=== PATIENT | female | born 1940 | race Caucasian/White ===

== ENCOUNTER 2017-03-17 17:45 | Emergency (ER) | payer OTHER, BC ==
[2017-03-17 17:50] VITALS: TEMP 99.4; BMI 22.6
[2017-03-17 18:48] LABS: ALBUMIN 4.1 g/dl (3.5-5.0); ALK PHOS 45 U/L (32-92); ANION GAP 3 (8-16); BILIRUBIN,TOTAL 0.7 mg/dl (0.2-1.0); CALCIUM 9.2 mg/dl (8.4-10.2); CO2 25 mmol/L (22-28); CREATININE 0.7 mg/dl (0.6-1.3); GLUCOSE,RANDOM 85 mg/dl (74-106); SGOT/AST 25 U/L (10-42); SGPT/ALT 26 U/L (10-40); TOT PROT 6.5 g/dl (6.4-8.3)
--- NOTE | 2017-03-17 18:48 | PDOC ---
History of Present Illness - History of Present Illness Initial Comments: 03/17/17 19:20 Patient is a 76 year old female with a PMH of myasthenia gravis and has a risk factor for heart disease who presents to the emergency room complaining of lightheadedness and dizziness since a couple of hours ago. Patient states she was headed to dinner with family and she was arguing with her spouse when she began feeling dizzy and felt heaviness in her right arm and leg. She took her BP and noticed it was unusually high (207). Patients daughter stated patient had a hard time walking. Patient states she was having a hard time signing her name. Patient states associated symptoms of heart palpitations. Patient states her blood pressure is normally 120-130/60 after taking her Losartan and otherwise is normally 147-152/70 without it. Patient states she is sensitive to drug interactions. Patient states she normally exercises and eats a vegetarian diet. Denies chest pain, shortness of breath, headache. Hypertension specialist: [phone] PCP: Gunnar Cash M.D. <Eri Johnson - Last Filed: 03/17/17 21:01> <Josefa Fuentes - Last Filed: 03/20/17 09:54> - General Chief Complaint: Lightheaded Stated Complaint: DIZZINESS Time Seen by Provider: 03/17/17 18:40 NIH Stroke Scale - Last Known Well Date/Time & Onset Date Last Known Well: 03/17/17 Time Last Known Well: 17:55 - Initial Evaluation Level of consciousness: Alert Ask patient the month and their age: Answers both correctly Ask patient to open & close eyes; make fist and let go: Obeys both correctly Best gaze (horizontal eye movement): Normal Visual field testing: No visual field loss Facial paresis (Show teeth/raise eyebrows/close eyes tight): Normal symmetrical movement Motor Function: Left Arm: Normal Motor Function: Right Arm: Normal (extends arm 90 (or 45) degrees for 10 seconds without drift Motor Function: Left Leg: Normal (extends leg 30 degrees for 5 seconds without drift) Motor Function: Right Leg: Normal (extends leg 30 degrees for 5 seconds without drift) Limb Ataxia: No ataxia Sensory(Use pinprick test arms,legs,trunk,face/side to side): Normal Best language (Describe picture, name items, read sentences): No Aphasia Dysarthria (read several words): Normal articulation Extinction and Inattention: No abnormality - Total Score NIH Stroke Scale Score: 0 <Josefa Fuentes - Last Filed: 03/20/17 09:54> tPA Exclusion Checklist 0-3hr - Time Elapsed Date last known well: 03/17/17 Time last known well: 17:35 Elaspsed time: 2 Day(s) and 16 Hour(s) and 15 Minutes - Thrombolytic Therapy Candidate Is the patient eligible for Thrombolytic Therapy?: No - Exclusion Criteria 0-3hr SBP greater than 185 or DBP greater than 110mmHg despite tx: Yes Recent IC/spinal surgery,head trauma or stroke w/in last 3mo: No Hx of previous IC hemorrhage, IC neoplasm, AVM or aneurysm: No Active internal bleeding: No Blding diathesis(low plt ct, inc PTT,INR>1.7 or use of NOAC): No Symptoms suggest subarachnoid hemorrhage: No CT demonstrates multilobar infarct(>1/3 cerebral hemiphere): No Arterial puncture at noncompressible site in previous 7 days: No Blood glucose concentration less than 50mg/dL (2.7mmol/L): No - Relative Exclusion Criteria 0-3h Life expectancy <1yr/severe co-morbid illness/MEASUREMENT ANALYST on admit: No : No Patient/family refused: No Rapid improvement: Yes Stroke severity too mild: Yes Recent acute NV (w/in previous 3 months): No Seizure at onset with postictal residual neuro impairments: No Major surgery or serious trauma w/in previous 14 days: No Recent GI or hemorrhage (w/in previous 21 days): No - Ineligibility reason(s) Reasons No tPA given: See reason(s) noted above <Josefa Fuentes - Last Filed: 03/20/17 09:54> Past History <Eri Johnson - Last Filed: 03/17/17 21:01> - Past Medical History Disorders: Yes (PROLAPSED UTERUS) HTN: Yes Other medical history: MYESTINAGRAVIS - Suicide/Smoking/Psychosocial Hx Smoking Status: No Smoking History: Never smoked Number of Cigarettes Smoked Daily: 0 Information on smoking cessation initiated: No Hx Alcohol Use: No Drug/Substance Use Hx: No Substance Use Type: None <Josefa Fuentes - Last Filed: 03/20/17 09:54> - Past Medical History Allergies/Adverse Reactions: Allergies Allergy/AdvReac Type Severity Reaction Status Date / Time levofloxacin [From Levaquin] Allergy Severe Nausea Verified 03/17/17 17:46 Penicillins Allergy Severe Rash Verified 03/17/17 17:46 NOVICAIN Allergy Severe Nausea Uncoded 03/17/17 17:46 Home Medications: Ambulatory Orders Losartan Potassium 50 mg PO BID 03/11/13 Pyridostigmine [Mestinon -] 60 mg PO ASDIR 03/11/13 Review of Systems - Review of Systems Comments:: 03/17/17 19:21 GENERAL/CONSTITUTIONAL: No: fever, chills, weakness, loss of appetite. HEAD, EYES, EARS, NOSE AND THROAT: No: change in vision, ear pain, discharge, sore throat, throat swelling. CARDIOVASCULAR: +lightheadedness +palpitations No: chest pain,syncope RESPIRATORY: No: cough, shortness of breath, wheezing, hemoptysis, stridor. GASTROINTESTINAL: No: nausea, vomiting, abdominal cramping, diarrhea, rectal bleeding, constipation. GENITOURINARY: No: dysuria, hematuria, frequency, urgency, flank pain. MUSCULOSKELETAL: No: back pain, neck pain, joint pain, muscle swelling or pain SKIN AND BREASTS: No: lesions, pallor, rash or easy bruising. NEUROLOGIC: No: headache, vertigo, paresthesias, weakness ENDOCRINE: No: unexplained weight gain or loss HEMATOLOGIC/LYMPHATIC: No: anemia, easy bleeding, swelling nodes <Eri Johnson - Last Filed: 03/17/17 21:01> *Physical Exam - Vital Signs Last Vital Signs Temp Pulse Resp BP Pulse Ox 99.4 F 80 18 189/73 98 03/17/17 17:48 03/17/17 18:55 03/17/17 17:48 03/17/17 18:55 03/17/17 17:48 - Physical Exam Comments: 03/17/17 19:22 GENERAL: The patient is in no acute distress. HEAD: Normal with no signs of trauma. EYES: PERRLA, EOMI, sclera anicteric, conjunctiva clear. ENT: Ears normal, nares patent, oropharynx clear without exudates. Moist mucous membranes. NECK: Normal range of motion, supple without lymphadenopathy, JVD, or masses. LUNGS: Breath sounds equal, clear to auscultation bilaterally. No wheezes, and no crackles. HEART:Regular rate and rhythm, normal S1 and S2 without murmur, rub or gallop. ABDOMEN: Soft, nontender, normoactive bowel sounds. No guarding, no rebound. EXTREMITIES: Normal range of motion, no edema. No clubbing or cyanosis. No erythema, or tenderness. NEUROLOGICAL: See NIHSS. Cranial nerves II through XII grossly intact. Normal speech. No focal neurological deficits. MUSCULOSKELETAL: Back non-tender to palpation, no CVA tenderness SKIN: Warm, Dry, normal turgor, no rashes or lesions noted. <Eri Johnson - Last Filed: 03/17/17 21:01> - Vital Signs Last Vital Signs Temp Pulse Resp BP Pulse Ox 99.4 F 69 18 183/81 98 03/17/17 17:48 03/17/17 18:25 03/17/17 17:48 03/17/17 18:25 03/17/17 17:48 <Josefa Fuentes - Last Filed: 03/20/17 09:54> ED Treatment Course - LABORATORY CBC & Chemistry Diagram: 03/17/17 18:13 03/17/17 18:13 - ADDITIONAL ORDERS Additional order review: Laboratory Results 03/17/17 03/17/17 18:13 18:13 Sodium 135 L Potassium 3.7 Chloride 107 Carbon Dioxide 25 Anion Gap 3 L BUN 19 H Creatinine 0.7 Creat Clearance w eGFR > 60 Random Glucose 85 Calcium 9.2 Total Bilirubin 0.7 D AST 25 D ALT 26 Alkaline Phosphatase 45 Troponin I < 0.03 L Total Protein 6.5 Albumin 4.1 03/17/17 18:13 RBC 4.31 MCV 83.8 MCHC 35.2 RDW 13.0 MPV 7.8 Neutrophils % 48.6 Lymphocytes % 39.5 Monocytes % 7.0 Eosinophils % 3.4 Basophils % 1.5 <Eri Johnson - Last Filed: 03/17/17 21:01> - LABORATORY CBC & Chemistry Diagram: 03/17/17 18:13 03/17/17 18:13 <Josefa Fuentes - Last Filed: 03/20/17 09:54> Medical Decision Making - Critical Care Time Total Critical Care Time (minutes): 120 Critical Care Statement: The care of this patient involved high complexity decision making to prevent further life threatening deterioration of the patient 's condition and/or to evaluate & treat vital organ system(s) failure or risk of failure. - Medical Decision Making 03/17/17 18:56 This is a 76 yo F with a history of Myasthenia Gravis and HTN (om Losartan 50mg BID) She presents to the ER with her family due to High Blood pressure and right arm heaviness No headache No chest pain No shortness of breath No palpitations Pt vertigo No dizziness Pt came to the ER today because she noted right arm and leg heaviness She is ambulatory with steady gait in to the ER NIHSS 0 Pt presentation consistent with: TIA vs, CVA vs. Hypertensive Urgency vs. Myasthenia Crisis?? Will do continuous monitoring of her BP Will monitor for signs of ACS Leg and arm heaviness are concerning findings in this patient with elevated BP She at this time has refused CT, MRI, Any other medications, CXR, admission 03/17/17 19:45 Call placed to pt Neurologist/MS specialist Dr De Anda per pt request ( instead of the above actions) Pt requests that we monitor her until BP improved Attempted to get patient to the bathroom She requires a lot of assistance due to right leg heaviness I have reviewed this again with this patient She requires neurologic work up Pt sent for CT head 03/17/17 19:[address] read as negative Call placed to patient's neurologist He will call back Pt appears to be progressively worsening while in the ER She is still able to hold right arm up against gravity for 10 seconds and right leg up against gravity for 5 seconds with no drift or difficulty She has difficulty signing her name, for example 03/17/17 20:[address] Lino Recommends that pt bp be aggressively managed Would NOT give TPA as NIHSS is low Laboratory Tests 03/17/17 03/17/17 03/17/17 18:13 18:13 18:13 WBC 5.6 Hgb 12.7 Hct 36.1 Plt Count 295 Sodium 135 L Potassium 3.7 Chloride 107 Carbon Dioxide 25 BUN 19 H Creatinine 0.7 Random Glucose 85 Alkaline Phosphatase 45 Troponin I < 0.03 L 03/17/17 20:[address] De Anda, no response Call again placed to Dr Lino Requesting he come in to see this patient States this can be managed over the phone Pt NIHSS has not changed, it is still 0 Pt fine motor skills seem to be what is affected, Pt agreed to take an Aspirin but drops the pill She is assisted to standing and can walk but requires assistance to NOT fall over MRI offered to this patient She is refusing at this time Pt feels that this is possibly her myasthenia When told that I do not believe that because it is limited to her right side, pt believes that this is due to her using excessively her right side while putting up her Succoth She also likens this to a prior episode when her blood pressure became very elevated Care of patient taken over by Dr De La Torre She will contact Dr Lino and continuously monitor for neurologic changes 03/20/17 09:50 <Josefa Fuentes - Last Filed: 03/20/17 09:54> *DC/Admit/Observation/Transfer - Attestations Scribe Attestion: 03/17/17 19:22 Documentation prepared by Eri Johnson, acting as clinical specialist medical device for Josefa Fuentes MD. <Eri Johnson - Last Filed: 03/17/17 21:01> <Josefa Fuentes - Last Filed: 03/20/17 09:54> Diagnosis at time of Disposition: Hypertension - Discharge Dispostion Disposition: HOME Condition at time of disposition: Stable - Referrals Referrals: Gunnar Cash MD [Primary Care Provider] - Vipul Valles MD [Staff Physician] - 3 days - Patient Instructions Printed Discharge Instructions: High Blood Pressure Additional Instructions: Continue medications as previously prescribed Return to ER immediately if any severe symptoms recur Follow-up with Dr. Estrella regarding blood pressure control Follow-up with neurologist () within the next 3 days
[2017-03-17 18:52] LABS: PLATELET COUNT 295 K/MM3 (134-434)
[2017-03-17 18:58] LABS: BASOPHIL 1.5 % (0-2.0); EOSINOPHIL 3.4 % (0-4.5); MCH 29.5 pg (25.7-33.7); MCHC 35.2 g/dl (32.0-36.0); MEAN CELL VOLUME 83.8 fl (80-96); MEAN PLT VOLUME 7.8 fl (7.5-11.1); NEUTROPHILS 48.6 % (42.8-82.8); WHITE BLOOD COUNT 5.6 K/mm3 (4.0-10.8)
[2017-03-17] MEDS ORDERED: LOSARTAN POTASSIUM 50 MG TABLET (FP) PO ONE (19:15)
--- NOTE | 2017-03-17 19:53 | PDOC ---
*Physical Exam - Vital Signs Last Vital Signs Temp Pulse Resp BP Pulse Ox 99.4 F 80 18 189/73 98 03/17/17 17:48 03/17/17 18:55 03/17/17 17:48 03/17/17 18:55 03/17/17 17:48 ED Treatment Course - LABORATORY CBC & Chemistry Diagram: 03/17/17 18:13 03/17/17 18:13 - ADDITIONAL ORDERS Additional order review: Laboratory Results 03/17/17 03/17/17 18:13 18:13 Sodium 135 L Potassium 3.7 Chloride 107 Carbon Dioxide 25 Anion Gap 3 L BUN 19 H Creatinine 0.7 Creat Clearance w eGFR > 60 Random Glucose 85 Calcium 9.2 Total Bilirubin 0.7 D AST 25 D ALT 26 Alkaline Phosphatase 45 Troponin I < 0.03 L Total Protein 6.5 Albumin 4.1 03/17/17 18:13 RBC 4.31 MCV 83.8 MCHC 35.2 RDW 13.0 MPV 7.8 Neutrophils % 48.6 Lymphocytes % 39.5 Monocytes % 7.0 Eosinophils % 3.4 Basophils % 1.5 Progress Note - Progress Note Progress Note: Care of this patient received from Dr. Fuentes Patient had presented with right upper extremity and right lower extremity "heaviness" with subsequent difficulty ambulating. This had occurred after she had a discussion with her which had irritated her. Patient states that she is very sensitive to arguments with her and can sometimes note in elevation in her blood pressure. On presentation, her blood pressure was significantly elevated as noted above. Noncontrast head CT showed no evidence of bleed or other acute intracranial pathology. Because the patient has extreme sensitivity to medications, she preferred to take her own Losartan. As family members retrieved her own supply of losartan, the patient continued to have symptoms as described above. Gait testing revealed that she had significant difficulty in ambulating. Also, there appeared to be fine motor deficits in her right arm (dropped small items placed in her hand). The patient's neurologist is Dr. Vamsi Collier. His service was contacted twice without him or his coverage physician returning page. Neurology on-call, Dr. Valles was contacted. Although history and physical was particularly consistent with acute stroke, approval for emergency MRI was obtained. Unfortunately, patient is claustrophobic and cannot take benzodiazepines because of her myasthenia gravis. Therefore, she refused MRI. Meanwhile, after taking her own losartan, patient's blood pressure gradually decreased.(155/82 range) At the same time, her symptoms of right upper and lower extremity heaviness and discoordination improved. Patient felt well enough to go home and Gait testing revealed the patient ambulate normally without assistance. Dr. Valles contacted and progress discussed with him. It is his opinion that hit patient's symptoms were likely related to her hypertensive urgency and not reflective of stroke or TIA. Because of the marked improvement in her symptoms and blood pressure control, she can be discharged with follow up with him within the next 48 hours. This was discussed with the patient and her family. Patient states that she would like to follow-up with because she would prefer to have a neurologist in the area (Dr. Collier practices in [facility]). Meanwhile, the patient should continue her medications as prescribed. She should contact her hypertension physician, and relate today's incident and follow-up as planned. She should return to the emergency room immediately if she has recurrence of her symptoms or any new extremity weakness/ facial droop/difficulty in speaking or swallowing. *DC/Admit/Observation/Transfer Diagnosis at time of Disposition: Hypertension - Discharge Dispostion Disposition: HOME Condition at time of disposition: Stable - Referrals Referrals: Gunnar Cash MD [Primary Care Provider] - Vipul Valles MD [Staff Physician] - 3 days - Patient Instructions Printed Discharge Instructions: High Blood Pressure Additional Instructions: Continue medications as previously prescribed Return to ER immediately if any severe symptoms recur Follow-up with Dr. Estrella regarding blood pressure control Follow-up with neurologist () within the next 3 days - Post Discharge Activity
[2017-03-17 20:52] VITALS: BP 175/82; PULSE 71
--- NOTE | 2017-03-18 09:36 | EKG ---
Test Reason : Blood Pressure : / mmHG Vent. Rate : 069 BPM Atrial Rate : 069 BPM P-R Int : 182 ms QRS Dur : 132 ms QT Int : 456 ms P-R-T Axes : 067 -48 069 degrees QTc Int : 488 ms NORMAL SINUS RHYTHM RIGHT BUNDLE BRANCH BLOCK LEFT ANTERIOR FASCICULAR BLOCK BIFASCICULAR BLOCK MINIMAL VOLTAGE CRITERIA FOR LVH, MAY BE NORMAL VARIANT NONSPECIFIC T WAVE ABNORMALITY ABNORMAL ECG NO PREVIOUS ECGS AVAILABLE Confirmed by ESTEBAN KERN MD ([id number]) on 03/18/2017 9:35:44 AM Referred By: MD CEDEÑO Confirmed By:ESTEBAN KERN MD
== END 2017-03-17 23:26 | disposition home or self-care (01) ==
LOC: FER 17:45
DX: I10 Essential (primary) hypertension (principal); G70.00 Myasthenia gravis without (acute) exacerbation
CPT/HCPCS: 36415; 70450-TC; 80053; 84484; 85025; 93005; 99284-25

== ENCOUNTER 2022-04-06 12:27 | Observation (INO) | payer OTHER, BC ==
[2022-04-06] MEDS ORDERED: SODIUM CHLORIDE 0.9% 500 ML INFUS.BAG IV ONE (12:53)
[2022-04-06 13:42] LABS: HEMATOCRIT 41.9 % (32.4-45.2); HEMOGLOBIN 14.4 G/dL (10.7-15.3); MCH 29.5 pg (25.7-33.7); MCHC 34.4 g/dl (32.0-36.0); MEAN CELL VOLUME 85.8 fl (80-96); MEAN PLT VOLUME 7.6 fl (7.5-11.1); PLATELET COUNT 324.2 10^3/uL (134-434); RBC 4.88 10^6/uL (3.60-5.2); RDW 15.3 % (11.6-15.6); WHITE BLOOD COUNT 11.8 10^3/uL (4.0-10.8)
[2022-04-06 13:55] LABS: BILIRUBIN,TOTAL 0.8 mg/dl (0.2-1); CREATININE 0.8 mg/dl (0.55-1.3); TOT PROT 7.1 g/dl (6.4-8.2)
[2022-04-06] MEDS ORDERED: ACETAMINOPHEN 325 MG TABLET (FP) PO ONE (14:35)
[2022-04-06] MEDS ORDERED: ACETAMINOPHEN 325 MG TABLET (FP) ONE (14:37)
[2022-04-06] MEDS ORDERED: CEFTRIAXONE 1 GM in DEXTROSE 5%-WATER - 50 ML IVPB ONE (16:51)
[2022-04-06] MEDS ORDERED: oxyCODONE HCL 5 MG TABLET PO ONE (16:51)
[2022-04-06] MEDS ORDERED: cefTRIAXone SODIUM 1 GM VIAL ONE (16:54)
[2022-04-06] MEDS ORDERED: oxyCODONE HCL 5 MG TABLET ONE (16:54)
[2022-04-06 22:02] VITALS: BMI 21.6
[2022-04-07] MEDS: ACETAMINOPHEN 325 MG TABLET (FP) PO PRN ×3 (00:34→19:41)
[2022-04-07] MEDS ORDERED: FAMOTIDINE 20 MG TABLET PO ONE (03:40)
[2022-04-07 09:08] LABS: CALCIUM 8.7 mg/dl (8.5-10); CREATININE 0.7 mg/dl (0.55-1.3); MAGNESIUM 1.9 mg/dL (1.8-2.4)
[2022-04-07] MEDS: amLODIPine BESYLATE 2.5 MG TABLET (FP) PO SCH (09:30)
[2022-04-07] MEDS ORDERED: CEFTRIAXONE 1 GM in DEXTROSE 5%-WATER - 50 ML IVPB SCH ×2 (10:00→16:00)
[2022-04-07 11:07] LABS: HEMATOCRIT 38.3 % (32.4-45.2); HEMOGLOBIN 12.3 GM/dL (10.7-15.3); MCH 27.8 pg (25.7-33.7); MCHC 32.1 g/dl (32.0-36.0); MEAN CELL VOLUME 86.6 fl (80-96); PLATELET COUNT 320 10^3/uL (134-434); RBC 4.42 M/mm3 (3.60-5.2); RDW 14.1 % (11.6-15.6); WHITE BLOOD COUNT 9.1 K/mm3 (4.0-10.0)
[2022-04-07 16:04] LABS: EPITHELIAL CELLS FEW /hpf
[2022-04-08] MEDS: ACETAMINOPHEN 325 MG TABLET (FP) PO PRN (05:00)
[2022-04-08] MEDS: amLODIPine BESYLATE 2.5 MG TABLET (FP) PO SCH (10:02)
[2022-04-08 13:34] VITALS: BP 142/66; PULSE 81; RESP 18; TEMP 98.1
== END 2022-04-08 13:35 | disposition home or self-care (01) ==
LOC: FER 12:27 → FM/S 20:23
PROVIDERS: ADMIT Internal Medicine; ATTEND Internal Medicine
PROC: 3E03329 Introduction of Other Anti-infective into Peripheral Vein, Percutaneous Approach (ICD-10-PCS; principal; 2022-04-06)
PROC: 3E0337Z Introduction of Electrolytic and Water Balance Substance into Peripheral Vein, Percutaneous Approach (ICD-10-PCS; 2022-04-06)
DX: N39.0 Urinary tract infection, site not specified (principal); S49.90XA Unspecified injury of shoulder and upper arm, unspecified arm, initial encounter; W18.39XA Other fall on same level, initial encounter; Y93.89 Activity, other specified; Y92.098 Other place in other non-institutional residence as the place of occurrence of the external cause; Z88.8 Allergy status to other drugs, medicaments and biological substances; Z88.0 Allergy status to penicillin; R58 Hemorrhage, not elsewhere classified; R42 Dizziness and giddiness; R63.0 Anorexia
CPT/HCPCS: 0241U-QW; 36415; 70450-TC; 71045-TC-FY; 72125-TC; 73030-TC-LT-FY; 73060-TC-LT-FY; 80048; 80053; 81003; 81015; 83735; 85027; 87040; 87086; 87186; 93005; 96365; 96366; 97116-GP; 97162-GP; 99285-25; G0378

== ENCOUNTER 2024-02-12 13:30 | Inpatient (IN) | payer OTHER, BC ==
[2024-02-12 13:39] VITALS: BMI 20.1
[2024-02-12] MEDS: SODIUM CHLORIDE 0.9% 1000 ML INFUS.BAG IV ONE (14:00)
[2024-02-12] MEDS ORDERED: dilTIAZem HCL 125 MG/25 ML - 25 ML VIAL ONE (14:05)
[2024-02-12] MEDS: dilTIAZem HCL 50 MG/10 ML - 10 ML VIAL IVPUSH ONE (14:10)
[2024-02-12 14:41] LABS: INR 0.96 (0.83-1.09)
[2024-02-12 14:51] LABS: HEMOGLOBIN 14.5 G/dL (10.7-15.3); MCH 27.9 pg (25.7-33.7); MCHC 32.3 g/dl (32.0-36.0); MEAN CELL VOLUME 86.3 fl (80-96); MEAN PLT VOLUME 8.8 fl (7.5-11.1); PLATELET COUNT 226.9 10^3/uL (134-434); RBC 5.21 10^6/uL (3.60-5.2); RDW 15.1 % (11.6-15.6); WHITE BLOOD COUNT 8.1 10^3/uL (4.0-10.8)
[2024-02-12 14:54] LABS: ALBUMIN 4.2 g/dl (3.4-5.0); BILIRUBIN,TOTAL 0.7 mg/dl (0.2-1); CALCIUM 9.6 mg/dl (8.5-10.1); CREATININE 1.1 mg/dl (0.6-1.3); MAGNESIUM 1.9 mg/dL (1.8-2.4); POTASSIUM 3.9 mmol/L (3.5-5.1); TOT PROT 6.6 g/dl (6.4-8.2)
[2024-02-12] MEDS ORDERED: cefTRIAXone SODIUM 1 GM VIAL ONE (14:56)
[2024-02-12] MEDS ORDERED: dilTIAZem HCL 30 MG TABLET ONE (14:56)
[2024-02-12] MEDS: CEFTRIAXONE 1 GM in DEXTROSE 5%-WATER - 100 ML IVPB ONE (15:01)
[2024-02-12] MEDS: dilTIAZem HCL 30 MG TABLET PO ONE (15:01)
[2024-02-12 15:06] LABS: PLATELET ESTIMATE ADEQUATE
[2024-02-12 15:10] LABS: EPITHELIAL CELLS 0-5 /hpf
[2024-02-12 16:59] LABS: VENOUS BASE EXCESS -2.4 mmol/L (-2-2); VENOUS O2 SATURATION 91.2 % (70-80); VENOUS PCO2 33.3 mmHg (38-52); VENOUS PH 7.42 (7.310-7.410)
[2024-02-12] MEDS ORDERED: METOPROLOL TARTRATE 25 MG TABLET (FP) PO SCH (18:37)
[2024-02-12] MEDS ORDERED: ENOXAPARIN NA (PORCINE) 60 MG/0.6 ML DISP.SYRIN SQ SCH (18:45)
[2024-02-12 21:13] VITALS: BP 124/64; PULSE 79; RESP 18; TEMP 98.9
[2024-02-12] MEDS ORDERED: ROSUVASTATIN CA 20 MG TABLET PO SCH (22:00)
[2024-02-12] MEDS ORDERED: GABAPENTIN 300 MG CAPSULE PO SCH (22:00)
== END 2024-02-12 20:45 | disposition short-term general hospital (02) | DRG 309 ==
LOC: FER 13:30 → JERBED 18:15 → UNDOADMIN 18:15 → JICU 18:15
PROVIDERS: ADMIT Internal Medicine; ATTEND Internal Medicine
DX: I48.91 Unspecified atrial fibrillation (principal); N39.0 Urinary tract infection, site not specified; I10 Essential (primary) hypertension; E78.5 Hyperlipidemia, unspecified; G62.9 Polyneuropathy, unspecified; G70.00 Myasthenia gravis without (acute) exacerbation; I45.10 Unspecified right bundle-branch block; R94.31 Abnormal electrocardiogram [ECG] [EKG]; R63.0 Anorexia; Z88.0 Allergy status to penicillin; R53.1 Weakness
CPT/HCPCS: 0241U-QW; 36415; 70450-TC; 71045-TC-FY; 72125-TC; 72170-TC-FY; 80053; 81003; 81015; 82803; 83605; 83735; 84443; 84484; 85025; 85027; 85610; 85651; 85730; 86140; 87086; 87186; 93005; 99291

== ENCOUNTER 2024-02-23 17:17 | Inpatient (IN) | payer OTHER, BC ==
[2024-02-23 18:26] LABS: HEMATOCRIT 40.6 % (32.4-45.2); HEMOGLOBIN 13.3 G/dL (10.7-15.3); MCH 28.8 pg (25.7-33.7); MCHC 32.9 g/dl (32.0-36.0); MEAN CELL VOLUME 87.6 fl (80-96); MEAN PLT VOLUME 7.1 fl (7.5-11.1); PLATELET COUNT 497.2 10^3/uL (134-434); RBC 4.63 10^6/uL (3.60-5.2); RDW 15.6 % (11.6-15.6); WHITE BLOOD COUNT 10.1 10^3/uL (4.0-10.8)
[2024-02-23 18:38] LABS: ALBUMIN 3.9 g/dl (3.4-5.0); BILIRUBIN,TOTAL 0.4 mg/dl (0.2-1); CALCIUM 9.6 mg/dl (8.5-10.1); CREATININE 0.8 mg/dl (0.6-1.3); POTASSIUM 4.1 mmol/L (3.5-5.1); TOT PROT 6.8 g/dl (6.4-8.2)
[2024-02-23 18:52] LABS: PLATELET ESTIMATE SLT INCREASE
[2024-02-23] MEDS ORDERED: methylPREDNISolone NA SUCC 125 MG/2 ML VIAL ONE (19:45)
[2024-02-23] MEDS ORDERED: valACYclovir HCL 500 MG TABLET (FP) ONE (19:45)
[2024-02-23] MEDS: valACYclovir HCL 500 MG TABLET (FP) PO ONE (19:52)
[2024-02-23] MEDS: methylPREDNISolone NA SUCC 125 MG/2 ML VIAL IVPUSH ONE (19:52)
[2024-02-23 22:10] VITALS: BMI 21.0
[2024-02-23] MEDS: ROSUVASTATIN CA 20 MG TABLET PO SCH (22:30)
[2024-02-23] MEDS: GABAPENTIN 300 MG CAPSULE PO SCH (22:30)
[2024-02-24] MEDS ORDERED: valACYclovir HCL 500 MG TABLET (FP) PO SCH (04:00)
[2024-02-24 08:24] LABS: CREATININE 0.7 mg/dl (0.6-1.3); POTASSIUM 3.9 mmol/L (3.5-5.1)
[2024-02-24 09:43] LABS: BASO % 0.2 % (0-2.0); HEMATOCRIT 38.4 % (32.4-45.2); HEMOGLOBIN 13.2 GM/dL (10.7-15.3); LYMPH % 13.7 % (8-40); MCH 28.9 pg (25.7-33.7); MCHC 34.3 g/dl (32.0-36.0); MEAN CELL VOLUME 84.3 fl (80-96); MEAN PLT VOLUME 7.4 fl (7.5-11.1); NEUT % 85.1 % (42.8-82.8); PLATELET COUNT 539 10^3/uL (134-434); RBC 4.55 M/mm3 (3.60-5.2); RDW 14.2 % (11.6-15.6); WHITE BLOOD COUNT 10.1 K/mm3 (4.0-10.0)
[2024-02-24] MEDS: predniSONE 20 MG TABLET (UD) PO SCH (09:59)
[2024-02-24] MEDS: valACYclovir HCL 500 MG TABLET (FP) PO SCH (10:00)
[2024-02-24] MEDS: CEFTRIAXONE 1 GM in DEXTROSE 5%-WATER - 50 ML IVPB SCH (13:38)
[2024-02-24] MEDS: POLYETHYLENE GLYCOL (HEALTHYLAX) 3350 17 GM PACKET PO SCH (15:41)
[2024-02-25 08:28] LABS: ALBUMIN 3.6 g/dl (3.4-5.0); BILIRUBIN,TOTAL 0.4 mg/dl (0.2-1); CALCIUM 9.8 mg/dl (8.5-10.1); CREATININE 0.8 mg/dl (0.6-1.3); POTASSIUM 4.4 mmol/L (3.5-5.1); TOT PROT 6.2 g/dl (6.4-8.2)
[2024-02-25] MEDS: ARTIFICIAL TEARS OPHTHALMIC DROPS OU PRN (08:30)
[2024-02-25 10:21] LABS: HEMATOCRIT 36.1 % (32.4-45.2); HEMOGLOBIN 12.1 GM/dL (10.7-15.3); MCH 28.5 pg (25.7-33.7); MCHC 33.5 g/dl (32.0-36.0); MEAN CELL VOLUME 85.1 fl (80-96); MEAN PLT VOLUME 7.7 fl (7.5-11.1); PLATELET COUNT 517 10^3/uL (134-434); RBC 4.24 M/mm3 (3.60-5.2); RDW 14.7 % (11.6-15.6); WHITE BLOOD COUNT 24.1 K/mm3 (4.0-10.0)
[2024-02-25 10:45] LABS: ANISOCYTOSIS 0; MACROCYTOSIS 0
[2024-02-25] MEDS: DOCUSATE SODIUM 100 MG CAPSULE (FP) PO SCH (15:15)
[2024-02-26] MEDS ORDERED: cefTRIAXone SODIUM 1 GM VIAL ONE (09:28)
[2024-02-27 09:36] LABS: ALBUMIN 3.5 g/dl (3.4-5.0); BILIRUBIN,TOTAL 0.5 mg/dl (0.2-1); CALCIUM 9.2 mg/dl (8.5-10.1); CREATININE 0.6 mg/dl (0.6-1.3); POTASSIUM 4.1 mmol/L (3.5-5.1)
[2024-02-27] MEDS: ACETAMINOPHEN 325 MG TABLET (FP) PO PRN (11:07)
[2024-02-27 13:03] LABS: HEMATOCRIT 37.7 % (32.4-45.2); HEMOGLOBIN 12.3 GM/dL (10.7-15.3); MCHC 32.7 g/dl (32.0-36.0); MEAN CELL VOLUME 85.6 fl (80-96); MEAN PLT VOLUME 8.1 fl (7.5-11.1); PLATELET COUNT 499 10^3/uL (134-434); RBC 4.41 M/mm3 (3.60-5.2); RDW 15.3 % (11.6-15.6); WHITE BLOOD COUNT 15.7 K/mm3 (4.0-10.0)
[2024-02-27 13:43] LABS: ANISOCYTOSIS 0; HELMET CELLS 0; HOWELL-JOLLY BODIES 0; MACROCYTOSIS 0; OVALOCYTE 0; ROULEAU 0; SICKELED CELLS 0; TARGET CELLS 0; TEAR DROP CELLS 0; TOXIC GRANULATION 0
[2024-02-28] MEDS ORDERED: valACYclovir HCL 500 MG TABLET (FP) ONE (21:16)
[2024-02-29 08:43] LABS: ALBUMIN 3.5 g/dl (3.4-5.0); BILIRUBIN,TOTAL 0.6 mg/dl (0.2-1); CALCIUM 9.3 mg/dl (8.5-10.1); CREATININE 0.6 mg/dl (0.6-1.3); TOT PROT 5.9 g/dl (6.4-8.2)
[2024-02-29 08:47] LABS: HEMATOCRIT 38.5 % (32.4-45.2); HEMOGLOBIN 12.8 GM/dL (10.7-15.3); MCH 28.4 pg (25.7-33.7); MCHC 33.3 g/dl (32.0-36.0); MEAN CELL VOLUME 85.4 fl (80-96); MEAN PLT VOLUME 7.6 fl (7.5-11.1); MONO % 2.8 % (3.8-10.2); NEUT % 82.2 % (42.8-82.8); PLATELET COUNT 448 10^3/uL (134-434); RBC 4.51 M/mm3 (3.60-5.2); RDW 14.5 % (11.6-15.6)
[2024-02-29 09:49] VITALS: BP 149/81; PULSE 102; RESP 18; TEMP 98
[2024-02-29] MEDS: predniSONE 20 MG TABLET (UD) PO SCH (09:57)
[2024-02-29] MEDS: PANTOPRAZOLE 40 MG TABLET PO SCH (09:58)
[2024-02-29] MEDS: BISACODYL 10 MG SUPP.RECT PR ONE (12:39)
== END 2024-02-29 14:45 | disposition home or self-care (01) | DRG 866 ==
LOC: FER 17:17 → FM/S 19:00 → OBSVTOIN 02-24 14:56
PROVIDERS: ADMIT Internal Medicine; ATTEND Internal Medicine
DX: B02.8 Zoster with other complications (principal); L03.211 Cellulitis of face; G70.00 Myasthenia gravis without (acute) exacerbation; I10 Essential (primary) hypertension; E78.5 Hyperlipidemia, unspecified; G62.9 Polyneuropathy, unspecified; G51.0 Bell's palsy; I48.91 Unspecified atrial fibrillation
CPT/HCPCS: 36415; 70450-TC; 80048; 80053; 80061; 83036; 83519; 84439; 84443; 85025; 85027; 87635; 97116-GP; 97162-GP; 99285-25; G0378

== ENCOUNTER 2024-06-22 16:22 | Emergency (ER) | payer OTHER, BC ==
[2024-06-22 16:36] VITALS: BP 150/87; PULSE 84; RESP 18; TEMP 97.3; BMI 20.6
== END 2024-06-22 19:16 | disposition home or self-care (01) ==
LOC: FER 16:22
DX: S01.81XA Laceration without foreign body of other part of head, initial encounter (principal); W19.XXXA Unspecified fall, initial encounter
CPT/HCPCS: 70450-TC; 99284-25

== ENCOUNTER 2024-06-27 13:25 | Inpatient (IN) | payer OTHER, BC ==
[2024-06-27 15:21] LABS: HEMATOCRIT 42.2 % (32.4-45.2); HEMOGLOBIN 13.9 G/dL (10.7-15.3); MCH 28.8 pg (25.7-33.7); MEAN CELL VOLUME 87.2 fl (80-96); PLATELET COUNT 354.1 10^3/uL (134-434); RBC 4.84 10^6/uL (3.60-5.2); RDW 15.3 % (11.6-15.6); WHITE BLOOD COUNT 5.9 10^3/uL (4.0-10.8)
[2024-06-27 15:52] LABS: ALBUMIN 4.2 g/dl (3.4-5.0); BILIRUBIN,TOTAL 0.6 mg/dl (0.2-1); CREATININE 0.8 mg/dl (0.6-1.3); POTASSIUM 3.9 mmol/L (3.5-5.1); TOT PROT 6.3 g/dl (6.4-8.2)
[2024-06-27 16:10] LABS: PLATELET ESTIMATE ADEQUATE
[2024-06-27 21:27] LABS: EPITHELIAL CELLS FEW /hpf
[2024-06-27] MEDS: CEFTRIAXONE 1 GM in DEXTROSE 5%-WATER - 50 ML IVPB ONE (23:23)
[2024-06-28 01:58] VITALS: RESP 18
[2024-06-28 06:28] VITALS: BMI 23.7
[2024-06-28] MEDS: CEFTRIAXONE 1 GM in DEXTROSE 5%-WATER - 50 ML IVPB SCH (09:20)
[2024-06-28 09:41] LABS: CALCIUM 9.7 mg/dl (8.5-10.1); CREATININE 0.7 mg/dl (0.6-1.3); POTASSIUM 3.7 mmol/L (3.5-5.1)
[2024-06-28 14:38] LABS: BASO % 0.7 % (0-2.0); EOS % 4.3 % (0-4.5); HEMATOCRIT 41.2 % (32.4-45.2); HEMOGLOBIN 13.6 GM/dL (10.7-15.3); LYMPH % 33.4 % (8-40); MCH 28.1 pg (25.7-33.7); MCHC 32.9 g/dl (32.0-36.0); MEAN CELL VOLUME 85.4 fl (80-96); MEAN PLT VOLUME 8.8 fl (7.5-11.1); MONO % 8.2 % (3.8-10.2); NEUT % 53.4 % (42.8-82.8); PLATELET COUNT 366 10^3/uL (134-434); RBC 4.83 M/mm3 (3.60-5.2); RDW 15.3 % (11.6-15.6); WHITE BLOOD COUNT 5.9 K/mm3 (4.0-10.0)
[2024-06-28] MEDS: ROSUVASTATIN CA 20 MG TABLET PO SCH (21:37)
[2024-06-30 08:46] LABS: ALBUMIN 3.6 g/dl (3.4-5.0); BILIRUBIN,TOTAL 0.5 mg/dl (0.2-1); CALCIUM 9.2 mg/dl (8.5-10.1); CREATININE 0.6 mg/dl (0.6-1.3); POTASSIUM 3.8 mmol/L (3.5-5.1); TOT PROT 5.5 g/dl (6.4-8.2)
[2024-06-30 09:17] LABS: BASO % 0.8 % (0-2.0); EOS % 6.7 % (0-4.5); HEMATOCRIT 39.6 % (32.4-45.2); HEMOGLOBIN 13.1 GM/dL (10.7-15.3); MCH 28.1 pg (25.7-33.7); MCHC 33.1 g/dl (32.0-36.0); MEAN CELL VOLUME 84.7 fl (80-96); MEAN PLT VOLUME 8.4 fl (7.5-11.1); MONO % 8.2 % (3.8-10.2); NEUT % 60.3 % (42.8-82.8); PLATELET COUNT 328 10^3/uL (134-434); RBC 4.67 M/mm3 (3.60-5.2); RDW 14.8 % (11.6-15.6); WHITE BLOOD COUNT 6.2 K/mm3 (4.0-10.0)
[2024-06-30 10:17] VITALS: TEMP 98.1
[2024-06-30 14:18] VITALS: BP 131/73; PULSE 76
== END 2024-06-30 16:20 | disposition home health service (06) | DRG 690 ==
LOC: FER 13:25 → OBSVTOIN 20:59 → FM/S 20:59
PROVIDERS: ADMIT Internal Medicine
DX: N39.0 Urinary tract infection, site not specified (principal); I10 Essential (primary) hypertension; E78.5 Hyperlipidemia, unspecified; R29.6 Repeated falls; I48.91 Unspecified atrial fibrillation
CPT/HCPCS: 0241U-QW; 36415; 70450-TC; 70486-TC; 71046-TC-FY; 72170-TC-FY; 80048; 80053; 81003; 81015; 84439; 84443; 84484; 85025; 85027; 87086; 87186; 93005; 97116-GP; 97162-GP; 99285-25

== ENCOUNTER 2024-08-30 12:30 | Inpatient (IN) | payer OTHER, BC ==
[2024-08-30 13:10] LABS: HEMATOCRIT 40.5 % (32.4-45.2); HEMOGLOBIN 13.3 G/dL (10.7-15.3); MCHC 32.7 g/dl (32.0-36.0); MEAN CELL VOLUME 85.4 fl (80-96); MEAN PLT VOLUME 8.2 fl (7.5-11.1); PLATELET COUNT 390.3 10^3/uL (134-434); RBC 4.74 10^6/uL (3.60-5.2); RDW 16.1 % (11.6-15.6)
[2024-08-30 13:13] LABS: PLATELET ESTIMATE ADEQUATE
[2024-08-30 13:14] LABS: ALBUMIN 3.7 g/dl (3.4-5.0); BILIRUBIN,TOTAL 0.5 mg/dl (0.2-1); CALCIUM 9.2 mg/dl (8.5-10.1); CREATININE 0.7 mg/dl (0.6-1.3); MAGNESIUM 2.1 mg/dL (1.8-2.4); POTASSIUM 4.2 mmol/L (3.5-5.1); TOT PROT 5.9 g/dl (6.4-8.2)
[2024-08-30] MEDS ORDERED: ASPIRIN 81 MG CHEWABLE TABLETS ONE (13:45)
[2024-08-30] MEDS: ASPIRIN 81 MG CHEWABLE TABLETS PO ONE (13:45)
[2024-08-30 14:27] LABS: N-TERMINAL BNP 304.3 pg/ml (5-450)
[2024-08-30 19:00] VITALS: BMI 20.5
[2024-08-30] MEDS: GABAPENTIN 300 MG CAPSULE PO SCH (21:12)
[2024-08-30] MEDS: guaiFENesin/D-METHORPHAN TAB.ER.12H PO SCH (21:12)
[2024-08-30] MEDS: ROSUVASTATIN CA 10 MG TABLET PO SCH (21:12)
[2024-08-31 02:45] VITALS: RESP 18
[2024-08-31 09:07] LABS: BASO % 1.5 % (0-2.0); EOS % 3.8 % (0-4.5); HEMATOCRIT 36.1 % (32.4-45.2); HEMOGLOBIN 11.9 GM/dL (10.7-15.3); LYMPH % 31.4 % (8-40); MCH 28.2 pg (25.7-33.7); MEAN CELL VOLUME 85.5 fl (80-96); MEAN PLT VOLUME 8.3 fl (7.5-11.1); MONO % 8.1 % (3.8-10.2); NEUT % 55.2 % (42.8-82.8); PLATELET COUNT 378 10^3/uL (134-434); RBC 4.22 M/mm3 (3.60-5.2); RDW 15.2 % (11.6-15.6); WHITE BLOOD COUNT 6.3 K/mm3 (4.0-10.0)
[2024-08-31] MEDS: ENOXAPARIN NA (PORCINE) 40 MG/0.4 ML DISP.SYRIN SQ SCH (09:32)
[2024-08-31 10:31] VITALS: BP 138/64; PULSE 76; TEMP 97.8
[2024-08-31 12:33] LABS: ALBUMIN 3.4 g/dl (3.4-5.0); BILIRUBIN,TOTAL 0.5 mg/dl (0.2-1); CREATININE 0.7 mg/dl (0.6-1.3); MAGNESIUM 2.1 mg/dL (1.8-2.4); PHOSPHOROUS 3.8 (2.5-4.9); POTASSIUM 4.2 mmol/L (3.5-5.1); TOT PROT 5.3 g/dl (6.4-8.2)
== END 2024-08-31 16:03 | disposition home or self-care (01) | DRG 866 ==
LOC: FER 12:30 → FM/S 15:54 → OBSVTOIN 16:10
PROVIDERS: ADMIT Internal Medicine; ATTEND Internal Medicine
DX: B33.8 Other specified viral diseases (principal); I42.2 Other hypertrophic cardiomyopathy; I10 Essential (primary) hypertension; I77.819 Aortic ectasia, unspecified site; I35.1 Nonrheumatic aortic (valve) insufficiency; E78.5 Hyperlipidemia, unspecified; I51.7 Cardiomegaly
CPT/HCPCS: 0241U-QW; 36415; 71045-TC-FY; 80053; 83735; 83880; 84100; 84484; 85025; 85027; 93005; 93306-TC; 97116-GP; 97162-GP; 99285-25; G0378

== ENCOUNTER 2024-11-16 12:55 | Emergency (ER) | payer OTHER, BC ==
[2024-11-16 13:08] VITALS: BP 122/61; PULSE 69; RESP 18; TEMP 97.9; BMI 20.6
[2024-11-16] MEDS ORDERED: ACETAMINOPHEN INJECTION 100 ML ONE (13:33)
[2024-11-16] MEDS: ACETAMINOPHEN 1000 MG/100 ML BAG IVPB ONE (13:36)
[2024-11-16 14:05] LABS: ABSOLUTE IMMATURE GRANULOCYTES 0.01 x10^3/uL (0.0-0.031); BASOPHILS # 0.05 x10^3/uL (0.01-0.08); EOSINOPHILS # 0.22 x10^3/uL (0.04-0.36); HEMATOCRIT 43.6 % (34.1-44.9); HEMOGLOBIN 13.8 g/dL (11.2-15.7); MCHC 31.7 g/dl (32.2-35.5); MEAN CELL VOLUME 89.3 fl (79.4-94.8); MEAN PLT VOLUME 10.1 fl (9.4-12.3); MONOCYTE # 0.54 x10^3/uL (0.24-0.86); MONOCYTE % 7.3 % (4.7-12.5); PLATELET COUNT 332 x10^3/uL (182-369); RDW 13.8 % (12.5-17.0)
[2024-11-16] MEDS: SODIUM CHLORIDE 500 ML IV STA (14:15)
[2024-11-16 14:44] LABS: ALK PHOS 49 U/L (45-117); ANION GAP 9 mmol/L (4-13); BILIRUBIN,TOTAL 0.5 mg/dl (0.2-1); CALCIUM 9.5 mg/dl (8.5-10.1); CHLORIDE 105 mmol/L (98-107); CO2 27 mmol/L (21-32); CREATININE 0.7 mg/dl (0.6-1.3); GLUCOSE,RANDOM 90 mg/dl (74-106); MAGNESIUM 2.2 mg/dL (1.8-2.4); POTASSIUM 4.2 mmol/L (3.5-5.1); SGOT/AST 12 U/L (15-37); SGPT/ALT 12 U/L (7-52); SODIUM 141 mmol/L (136-145); TOT PROT 6.2 g/dl (6.4-8.2)
[2024-11-16 16:31] LABS: AMORP PHOS MODERATE /hpf (NONE SEEN); EPITHELIAL CELLS 0-5 /hpf
[2024-11-16 17:36] LABS: HCV DIAGNOSTIC IN-HOUSE W/RFLX NON-REACTIVE (NONREACTIVE); HIV INTERPRETATION NEGATIVE (NEGATIVE)
[2024-11-16] MEDS: KETOCONAZOLE 2% CREAM - 60GM TUBE TP ONE (18:02)
[2024-11-17] MEDS ORDERED: KETOCONAZOLE 2% CREAM - 60GM TUBE TP ONE (10:00)
== END 2024-11-16 19:15 | disposition home or self-care (01) ==
LOC: FER 12:55
PROC: 3E033NZ Introduction of Analgesics, Hypnotics, Sedatives into Peripheral Vein, Percutaneous Approach (ICD-10-PCS; principal; 2024-11-16)
PROC: 3E0337Z Introduction of Electrolytic and Water Balance Substance into Peripheral Vein, Percutaneous Approach (ICD-10-PCS; 2024-11-16)
DX: M54.50 Low back pain, unspecified (principal); R29.898 Other symptoms and signs involving the musculoskeletal system; L82.1 Other seborrheic keratosis; M53.3 Sacrococcygeal disorders, not elsewhere classified; E86.0 Dehydration; R94.31 Abnormal electrocardiogram [ECG] [EKG]; W18.30XA Fall on same level, unspecified, initial encounter
CPT/HCPCS: 36415; 72131-TC; 72192-TC; 80053; 81003; 81015; 83735; 84484; 85025; 86803; 87086; 87389; 93005; 99285-25; J0131